=== PATIENT | female | born 1955 ===

== ENCOUNTER → 2018-05-18 21:58 | Outpatient (REF) | payer OTHER, SELFPAY ==
[2018-05-19 00:09] LABS: Add Manual Diff / Slide Review NO; Basophils Absolute Auto 100 /uL (0-100); Basophils Percent Auto 1.1 % (0-2); Eosinophils Absolute Auto 100 /uL (0-450); Eosinophils Percent Auto 1.3 % (2-4); Hematocrit 40.9 % (36-46); Hemoglobin 14.1 g/dL (12.0-16.0); Lymphocytes Absolute Auto 1700 /uL (1100-4500); Lymphocytes Percent Auto 23.7 % (25-40); Mean Corpuscular HGB Conc 34.4 % (30-36); Mean Corpuscular Hemoglobin 29.3 PG (26-34); Mean Corpuscular Volume 85.3 fL (80-100); Monocytes Absolute Auto 400 /uL (0-900); Monocytes Percent Auto 5.6 % (3-14); Neutrophils Absolute Auto 4800 /uL (1500-7000); Neutrophils Percent Auto 68.3 % (50-75); Platelet Count 259 X10^3/uL (150-400); Red Cell Distribution Width 14.1 % (11.6-14.8)
[2018-05-19 03:03] LABS: Free T4, Direct Thyroxine 1.53 ng/dL (0.78-2.19)
[2018-05-19 03:17] LABS: Thyroid Stimulating Hormone 0.57 uIU/mL (0.47-4.68)
[2018-05-19 15:55] LABS: Free T3, Triiodothyronine Free 3.32 pg/mL (2.77-5.27)
[2018-05-20 15:34] LABS: Progesterone 3.2 ng/mL
== END ==
LOC: LAB 21:58
PROVIDERS: Visit Provider Naturopath
DX: N95.1 Menopausal and female climacteric states (principal); E03.9 Hypothyroidism, unspecified; R63.5 Abnormal weight gain; R68.82 Decreased libido
CPT/HCPCS: 36415; 82672; 84144; 84270; 84402; 84403; 84439; 84443; 84481; 84482; 85025

== ENCOUNTER → 2018-06-17 21:24 | Outpatient (REF) | payer OTHER, SELFPAY | LOC: LAB 21:24 | PROVIDERS: Visit Provider Naturopath | DX: N39.0 Urinary tract infection, site not specified (principal) | CPT/HCPCS: 87086 ==

== ENCOUNTER → 2018-07-06 21:13 | Outpatient (ROUT) | payer OTHER, SELFPAY | PROVIDERS: Visit Provider Physician Assistant | DX: J02.9 Acute pharyngitis, unspecified (principal) | CPT/HCPCS: 87070 ==